=== PATIENT | male | born 1960 | race Caucasian/White ===

== ENCOUNTER 2020-10-06 08:29 | Outpatient (RCR) | payer OTHER, SELFPAY | END 2020-10-14 23:59 | disposition home or self-care (01) | LOC: SPT 08:29 | PROVIDERS: Family Provider Internal Medicine; Referring Provider Internal Medicine; Visit Provider Internal Medicine | DX: M54.5 Low back pain (principal) | CPT/HCPCS: 97110; 97161 ==

== ENCOUNTER 2020-10-15 06:00 | Outpatient (RCR) | payer OTHER, SELFPAY | END 2020-11-14 23:59 | disposition home or self-care (01) | LOC: SPT 06:00 | PROVIDERS: Family Provider Internal Medicine; Referring Provider Internal Medicine; Visit Provider Internal Medicine | DX: M54.5 Low back pain (principal) | CPT/HCPCS: 97110; G0283 ==

== ENCOUNTER 2020-12-11 08:30 | Outpatient (CLI) | payer OTHER, SELFPAY ==
--- NOTE | 2020-12-11 08:37 | MR_ITS ---
WS: [id number] MRI LUMBAR SPINE NONCONTRAST HISTORY: M54.5 - Low back pain COMPARISON: 10/24/2012 TECHNIQUE: Sagittal and axial multisequence imaging is submitted. 7 cervical and 12 thoracic vertebral bodies. Cervical and thoracic curvature. There are 6 lumbar type vertebral bodies. The S1 is lumbarized. This numbering pattern will be important if surgery is ever contemplated in this patient. Posterior lumbar alignment is normal. Very mild disc desiccation throughout the lumbar spine with endplate osteophytes. No fractures or mar row edema. Conus terminates normally at L1-2 disc level. L1-L2: Normal. L2-L3: Mild annular disc bulging and mild facet arthritis. No stenosis. L3-L4: Very mild annular disc bulging with mild ligamentum flavum disease and facet arthritis. RIGHT foraminal disc protrusion with annular fissure contacts the RIGHT L3 nerve root. Very slight deformit y of the ventral thecal sac. L4-L5: Very mild annular disc bulging with a central protrusion. Mild ligamentum flavum disease and f acet arthritis. There is disc contacting the traversing L5 nerve roots bilaterally with only mild for aminal narrowing and mild central stenosis. L5-S1: Diffuse asymmetric disc bulging. Disc extends asymmetrically to the RIGHT. Broad-based disc bu lging causing significant encroachment upon the thecal sac and extends into the lateral recesses and foramina bilaterally. More significant contact on the RIGHT S1 nerve root. Moderate bilateral subarti cular recess stenosis. Progression of degenerative changes since the prior study. S1-S2 disc is rudimentary with no stenosis. Mild dilatation of the aorta. MR/MR lumbar spine wo con* [id number] IMPRESSION: 1. 5 lumbar type vertebral bodies with the S1 vertebral body being lumbarized. 2. Mild central stenosis with moderate bilateral subarticular recess and later al recess stenosis at L5-S1. Contact upon the S1 nerve roots bilaterally. 3. Disc bulging and central protrusion contacts the traversing L5 nerve root a t L4-5. Mild foraminal and central stenosis at L4-5. 4. RIGHT foraminal disc protrusion with annular fissure at L3-4 with contact o n the L3 nerve root. 5. Very mild progression of facet disease throughout the lumbar spine. Most si gnificant facet disease at the L5-S1 and S1-S2. No high-grade central or forami nal stenosis.
== END 2020-12-11 08:31 | disposition home or self-care (01) ==
PROVIDERS: PCP Internal Medicine; Visit Provider Internal Medicine
DX: M54.16 Radiculopathy, lumbar region (principal); M48.07 Spinal stenosis, lumbosacral region; M51.26 Other intervertebral disc displacement, lumbar region
CPT/HCPCS: 72148

== ENCOUNTER → 2021-01-07 09:59 | Outpatient (BNVA) | payer OTHER, SELFPAY | PROVIDERS: PCP Internal Medicine; Referring Provider Internal Medicine; Visit Provider Orthopaedic Surgery | DX: M47.896 Other spondylosis, lumbar region (principal); M54.5 Low back pain | CPT/HCPCS: 72110 ==

== ENCOUNTER → 2021-01-15 11:17 | Outpatient (BNVA) | payer OTHER, SELFPAY | PROVIDERS: PCP Internal Medicine; Visit Provider Internal Medicine | DX: E11.42 Type 2 diabetes mellitus with diabetic polyneuropathy (principal) | CPT/HCPCS: 83036 ==

== ENCOUNTER 2022-03-22 06:06 | Outpatient (CLI) | payer OTHER, SELFPAY ==
--- NOTE | 2022-03-22 06:25 | USCV_ITS ---
Arsen Ma Age: 61 Gender: M : 1960 Exam Date: 03/22/2022 06:32 Ordering Phys: Arthur Jacob MD Technologist: [place] [facility] [place]: CAD BP: 123 / 72 HR: 71 Rhythm: Sinus Technical Quality: Adequate MEASUREMENTS (Male / Female) Normal Values 2D ECHO LV Diastolic Diameter PLAX 3.7 cm 4.2 - 5.9 / 3.9 - 5.3 cm LV Systolic Diameter PLAX 3.1 cm IVS Diastolic Thickness 1.2 cm 0.6 - 1.0 / 0.6 - 0.9 cm IVS Systolic Thickness 1.4 cm LVPW Diastolic Thickness 1.1 cm 0.6 - 1.0 / 0.6 - 0.9 cm LVPW Systolic Thickness 1.3 cm LVOT Diameter 2.0 cm LV Ejection Fraction 2D Teich 23.9 % LV Ejection Fraction MOD 2C 73.6 % LV Ejection Fraction 2C AL 72.1 % LA Diameter 3.9 cm IVC Diameter 2.1 cm M-MODE Aortic Annulus Diameter 3.8 cm LA Ao Ratio MM 1.0 MV E Point Septal Separation 1.7 cm DOPPLER AV Peak Velocity 120.0 cm/s LVOT Peak Velocity 74.0 cm/s AV Area Cont Eq vti 2.2 cm squared AV Area Cont Eq pk 1.9 cm squared MV Area PHT 5.0 cm squared Mitral E to A Ratio 0.6 MV E' Velocity 38.5 cm/s Mitral E to MV E' Ratio 6.6 Mitral E to LV E' Lateral Ratio 6.5 Mitral E to LV E' Septal Ratio 6.8 TR Peak Velocity 242.3 cm/s TR Peak Gradient 23.5 mmHg TV Peak E Velocity 69.0 cm/s Right Atrial Pressure 3.0 mmHg Pulmonary Artery Systolic Pressu 26.5 mmHg RV Acceleration Time 0.1 s FINDINGS Left Ventricle Normal left ventricular size, systolic function and wall thickness, with no regional wall motion abnormalities. Grade I/IV diastolic dysfunction (abnormal relaxation filling pattern), normal to mildly elevated filling pressures. Left ventricular ejection fraction is estimated at 60 %. Right Ventricle Normal right ventricular size and systolic function. Normal right ventricular systolic pressure. Right Atrium The right atrium is normal in size. Left Atrium The left atrium is normal in size. Mitral Valve Structurally normal mitral valve without significant stenosis or prolapse. There is no mitral regurgitation. Aortic Valve Structurally normal aortic valve without significant sclerosis or stenosis. There is no aortic regurgitation. Tricuspid Valve Structurally normal tricuspid valve. Trace tricuspid valve regurgitation. Pulmonic Valve Pulmonic valve not well visualized. Pericardium Normal pericardium without effusion. Aorta Normal ascending aorta dimension. IVC The inferior vena cava appears normal. CONCLUSIONS Normal left ventricular size, systolic function and wall thickness, with no regional wall motion abnormalities. Grade I/IV diastolic dysfunction (abnormal relaxation filling pattern), normal to mildly elevated filling pressures. Left ventricular ejection fraction is estimated at 60 %. There is no change from the previous echo done 06/08/2015. Dr. Arsen Naylor MD (Electronically Signed) Final Date: 22 March 2022 15:29 S
== END 2022-03-22 06:07 | disposition home or self-care (01) ==
LOC: RAD 06:07
PROVIDERS: PCP Internal Medicine; Visit Provider Family Medicine
DX: I25.10 Atherosclerotic heart disease of native coronary artery without angina pectoris (principal)
CPT/HCPCS: 93306

== ENCOUNTER 2022-07-04 11:25 | Outpatient (CLI) | payer OTHER, SELFPAY ==
[2022-07-04 11:51] VITALS: BMI 31.8
--- NOTE | 2022-07-04 11:55 | ECG_ITS ---
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 Interpretive Statements NAME OF STUDY: TREADMILL STRESS TEST INDICATION: [Chest Pain, ] EXERCISE DATA: The patient was exercised by Guy protocol. Baseline heart rate was 93 beats per minute. Baseline blood pressure was 146/85 millimeters of mercury. Target heart rate was 133 beats per minute. Maximum heart rate achieved was 140, which was 105% of the target heart rate. Maximum blood pressure was 200/75 millimeters of mercury. Total exercise time was 6 minutes. Maximum METs achieved was 7. The reason for ending the test was maximal effort achieved chest pain. The patient complained of chest pain during the stress test, which then resolved after administration of sublingual nitroglycerin. ELECTROCARDIOGRAM: BASELINE: Showed sinus rhythm, normal axis, interventricular conduction delay and minimal ST depressions in inferior leads. Occasional PVCs seen. EXERCISE: At the peak exercise level, significant [address] depressions were noted in inferior leads. Minimal ST elevation seen in lead aVR. RECOVERY: During the recovery period, heart rate dropped appropriately. Inferior lead ST elevations in the inferolateral persisted. Frequent PVCs were noted. CONCLUSION: 1. Exercise capacity fair. 2. Heart rate response was appropriate 3. Blood pressure response was appropriate 4. Symptoms of chest pain suggestive of ischemia. 5. Exercise stress test is suggestive of ischemia with significant ST depressions noted in inferior leads and minimal ST elevation in aVR. Electronically Signed On 07-06-2022 13:38:20 CDT by Siddhartha Condon M.D. [id number]
[2022-07-04 12:26] VITALS: BP 147/90; PULSE 99
== END 2022-07-04 11:26 | disposition home or self-care (01) ==
PROVIDERS: PCP Family Medicine; Visit Provider Family Medicine
DX: I25.10 Atherosclerotic heart disease of native coronary artery without angina pectoris (principal)
CPT/HCPCS: 93017

== ENCOUNTER 2022-07-11 15:12 | Observation (INO) | payer OTHER, SELFPAY ==
[2022-07-11 15:00] VITALS: BMI 32.0
--- NOTE | 2022-07-11 15:26 | ECG_ITS ---
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 Measurements Intervals [place] Rate: 79 P: 55 UT: 138 QRS: 75 QRSD: 129 T: 37 QT: 397 QTc: 457 Interpretive Statements SINUS RHYTHM WITH OCCASIONAL VENTRICULAR PREMATURE COMPLEXES INDETERMINATE AXIS POSSIBLE RIGHT VENTRICULAR CONDUCTION DELAY [RSR (QR) IN V1/V2] Compared to ECG 06/08/2015 05:00:26 Ventricular premature complex(es) now present Indeterminate axis now present Intraventricular conduction delay no longer present Electronically Signed On 07-11-2022 19:28:33 CDT by Siddhartha Condon M.D. [id number] f
[2022-07-11 15:31] VITALS: BP 157/90; PULSE 88; RESP 15; O2SAT 95
[2022-07-11 16:03] VITALS: TEMP 36.4
[2022-07-11 16:18] LABS: Basophils % 0.4 %; Eosinophils # 0.4 10^3/uL (0.0-0.8); Eosinophils % 3.9 %; Hematocrit 41.8 % (42.0-52.0); Hemoglobin 14.3 g/dL (11.7-16.6); Lymphocytes % 32.6 %; Mean Corpuscular HGB Conc 34.2 g/dL (30.0-36.0); Mean Corpuscular Hemoglobin 28.8 pg (28.0-34.0); Mean Corpuscular Volume 84.3 fl (80-94); Mean Platelet Volume 9.6 fL (7.4-10.4); Monocytes % 10.5 %; Neutrophils # 4.79 10^3/uL (1.8-7.7); Neutrophils % 52.2 %; Nucleated Red Blood Cells % 0 %; Platelet Count 227 10^3/cmm (130-400); Red Blood Count 4.96 10^6/uL (4.1-5.3); Red Cell Distribution Width 13.6 % (12.1-15.1); White Blood Count 9.2 10^3/uL (4.0-10.0)
[2022-07-11 16:38] LABS: Alanine Aminotransferase 25 U/L (0-41); Alkaline Phosphatase 60 U/L (40-130); Anion Gap 14.9 (5-19); Aspartate Amino Transferase 16 U/L (0-40); Blood Urea Nitrogen 18 mg/dL (8-23); Calcium 8.8 mg/dL (8.5-10.5); Carbon Dioxide 25 mmol/L (22-29); Chloride 102 mmol/L (98-107); Globulin 2.8 g/dL (1.3-4.6); Glomerular Filtration Rate 113.9 mL/min (90-130); Glucose 81 mg/dL (65-115); Magnesium 2.1 mg/dL (1.7-2.3); Osmolality Calculated 287 mOsm/kg (285-295); Phosphorus 2.7 mg/dL (2.5-4.5); Potassium 3.9 mmol/L (3.5-5.1); Sodium 138 mmol/L (136-145); Total Bilirubin 0.7 mg/dL (0.15-1.2); Total Protein 6.8 g/dL (6.6-8.7)
[2022-07-11 16:46] LABS: Glucose Point of Care 110 mg/dL (70-110)
--- NOTE | 2022-07-11 19:24 | PM.HP ---
Providers/Chief Complaint Admitting Physician: Siddhartha Condon M.D Primary Care Provider: Arthur Jacob MD Chief Complaint: UNSTABLE ANGINA History of Present Illness Please refer to office note from today for H and P Medications/Allergies Home Medications Medication Instructions Recorded Confirmed Last Taken Type nitroglycerin 0.4 mg sublingual 0.4 mg sublingual Q5M PRN Chest 05/23/19 07/11/22 07/11/22 11:30 History tablet (Nitrostat) Pain omega-3 fatty acids 1,000 mg 1,000 mg PO DAILY 05/23/19 07/11/22 07/10/22 18:00 History capsule (Fish Oil Concentrate) One touch ultra blue test strips #1 ea 01/15/20 01/15/21 Unknown Rx hydrocodone 10 mg-acetaminophen 1 tab PO BID PRN pain 2 months #60 12/02/20 07/11/22 Unknown Rx 325 mg tablet tabs sitagliptin phosphate 100 mg tablet 100 mg PO DAILY #30 tabs 01/25/21 07/11/22 07/10/22 06:00 Rx glimepiride 4 mg tablet 4 mg PO BID #180 tabs 03/04/21 07/11/22 07/10/22 18:00 Rx tamsulosin 0.4 mg capsule (Flomax) 0.4 mg PO DAILY #30 caps 07/20/21 07/11/22 07/10/22 18:00 Rx furosemide 20 mg tablet 20 mg PO DAILY #90 tabs 08/30/21 07/11/22 07/10/22 06:00 Rx omeprazole 20 mg capsule,delayed 20 mg PO DAILY #90 caps 09/30/21 07/11/22 07/10/22 06:00 Rx release potassium chloride 10 mEq See Rx Instructions .Route 01/17/22 07/11/22 07/10/22 06:00 Rx tablet,extended release(part/cryst) .COMPLEX #30 tabs aspirin 81 mg PO BEDTIME 07/11/22 07/11/22 07/10/22 18:00 History dapagliflozin 10 mg tablet 10 mg PO DAILY 07/11/22 07/11/22 07/10/22 06:00 History (Farxiga) doxycycline hyclate 100 mg tablet 100 mg PO BID PRN tick fever 07/11/22 07/11/22 Unknown History exenatide microspheres 2 mg/0.85 2 mg SUBCUT Q7D 07/11/22 07/11/22 07/05/22 18:00 History mL subcutaneous auto-injector (Millie Salazar) lisinopril 20 mg tablet 10 mg PO DAILY 07/11/22 07/11/22 07/10/22 18:00 History spironolactone 25 25 tab PO DAILY 07/11/22 07/11/22 07/10/22 06:00 History mg-hydrochlorothiazide 25 mg tablet tadalafil 20 mg tablet 20 mg PO .COMPLEX 07/11/22 07/11/22 Unknown History Allergies Allergy/AdvReac Type Severity Reaction Status Date / Time No Known Allergies Allergy Verified 07/11/22 08:21 PFSH Acute PFSH: Medical History Erectile dysfunction Essential (primary) hypertension Type 2 diabetes mellitus with diabetic polyneuropathy Surgical History History of cardiac catheterization History of carpal tunnel surgery History of colonoscopy Family History Other CAD (coronary artery disease) Social History Smoking and tobacco status: former smoker (15 years ) Alcohol intake: former Vitals/I&O/Wt Last Vital Signs Temp 97.5 F L 07/11/22 16:03 Pulse 88 07/11/22 15:31 Resp 15 07/11/22 15:31 BP 157/90 07/11/22 15:31 Pulse Ox 95 07/11/22 15:31 O2 Del Method 07/11/22 15:31 07/11/22 07/11/22 07/11/22 06:59 14:59 22:59 Intake Total 240 / 240 Output Total 0 / 0 Balance 240 / 240 Weight last 48 hrs Weight 236 lb 4.8 oz Data 07/11/22 16:05 07/11/22 16:05 Attestations Medical Necessity Statement*: Care not expected to cross 2 midnights. Coding Level of Care Code Acute Code for Chg Fwd
[2022-07-11 19:49] LABS: Troponin(5th) Baseline 11 ng/L (0-15)
[2022-07-11] MEDS: aspirin 325 mg Tablet PO (20:19)
[2022-07-11] MEDS: enoxaparin 120 mg/0.8 mL Syringe 110 MG SUBCUT (20:19)
[2022-07-11 21:37] LABS: Glucose Point of Care 210 mg/dL (70-110)
[2022-07-11 22:00] VITALS: PULSE 85
[2022-07-11 22:10] LABS: Troponin 5 2HR 11.49 ng/L (0-15)
[2022-07-11 22:13] LABS: Troponin 5 2HR Delta 0.49 ABS# (0-10)
[2022-07-12] VITALS (20 sets, daily range): BP systolic 123–161; BP diastolic 70–93; PULSE 78–90; RESP 12–24; TEMP 36.4–37.4; O2SAT 91–96
--- NOTE | 2022-07-12 01:42 | ECG_ITS ---
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 Measurements Intervals [place] Rate: 81 P: 76 WI: 138 QRS: 133 QRSD: 130 T: 41 QT: 375 QTc: 436 Interpretive Statements SINUS RHYTHM WITH OCCASIONAL VENTRICULAR PREMATURE COMPLEXES POSSIBLE RIGHT VENTRICULAR HYPERTROPHY [SOME/ALL OF: PROMINENT R IN V1, LATE TRANSITION, RAD, PHILIP, SSS] NONSPECIFIC T-WAVE ABNORMALITY Compared to ECG 07/11/2022 15:26:31 T-wave abnormality now present Indeterminate axis no longer present Electronically Signed On 07-13-2022 0:47:20 CDT by Anamika Espinosa M.D. [id number]
[2022-07-12 02:02] LABS: Troponin 5 6HR 12.06 ng/L (0-15)
[2022-07-12 02:24] LABS: Troponin 5 6HR Delta 1.06 ng/L (0-12)
[2022-07-12] MEDS: diphenhydrAMINE 50 mg Capsule PO (06:15)
[2022-07-12] MEDS: sodium chloride 0.9% 1,000 ML 50 ML IV (06:16)
[2022-07-12 06:47] LABS: Glucose Point of Care 145 mg/dL (70-110)
--- NOTE | 2022-07-12 07:00 | XACV_ITS ---
Exam Room: [facility] Ht: 183 cm Wt: 107 kg BSA: 2.36 m2 Gender: Male : 1960 Any Known Allergies: Sulfa Exam Priority: Routine Indication(s): - Abnormal stress treadmill study Procedure(s): Procedure Description: Diagnostic procedure Procedure Description: Coronary Angiography Diagnostic Cath Status: Urgent Diagnostic Findings * INDICATION: 61-year-old man with past medical history of CAD, diabetes, hypertension who has unstable anginal symptoms was directly admitted from clinic. He also has a recent abnormal stress test. Plan for coronary angiogram with possible percutaneous coronary intervention. * Left Main has is a very short vessel. No significant stenosis noted. * Circumflex has mild luminal irregularities. It gives rise to a large sized OM 1 that is free of significant disease. OM 2 is a smaller sized vessel and has a 80% stenosis. * Proximal Left Anterior Descending: severe 90% stenosis, NGOZI: 3 flow. After the stenosis, it gives rise to diagonal artery that is free of significant disease. * Mid Right Coronary Artery: Chronic total occlusion, NGOZI: 0 flow. Left to right collaterals are noted. * Second Obtuse Marginal Branch Segment: significant 80% stenosis, NGOZI: 3 flow. * Coronary angiography shows right dominance. Conclusions 1. Severe multivessel coronary artery disease including severe proximal LAD, severe OM 2 stenosis and OUTSIDE LABORER of mid RCA with left to right collaterals. Recommendations * We will have heart team discussion and if he is agreeable, will transfer for CABG. * Continue aspirin. * Order echocardiogram. Interventional RX Recommendation: CABG Diagnostic RX Recommendation: CABG Anticoagulation: Heparin Pressures Phase:Rest AO : 90 / 66 ( 78 ) @ 8:47:00 AM Clinical Evaluation EBL: 5mL-10mL Procedural Details Procedure Consent Obtained. Admit Source: In Patient. Pre-Procedure Time Out. Identified patient by full name and date of as verbalized by the patient/guarantor. Does the consent match the physician's order: Yes. Accurate & Complete Informed Consent: Yes. Inpatient/Outpatient History & Physical on Chart: Yes. If H&P is completed, is and addenduem needed: N/A; If yes, is the addendum complete: N/A. Visualize and Verify Site with Patient/Guarantor: N/A. Relevant Radiology Images available: N/A. Pre-op teaching completed and patient verbalized understanding. The risks, benefits, and alternatives of sedation and/or procedure were discussed by physician. The patient agrees to continue. Procedure started. [facility] Clinical Fraility Score: 4: Vulnerable. Central Processing Tech Indications: Worsening Angina. Chest Pain Symptom Assessment: Typical Angina Symptoms. Correct patient, site and procedure confirmed by cath team. Current diagnosis: Unstable angina. PERRLA. 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 Lungs clear x 5 lobes. IV Site on Arrival: 18 gauge in the right forearm. IV Fluids: 0.9% NaCl at KVO. 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 Pre Procedural Pulses: bilateral dorsalis pedis was 2+. Pre Procedural Pulses: bilateral radial was 2+. Oxygen started at 2liters/min via nasal canula. right groin was prepped with chloroprep then draped in the usual sterile fashion. right radial was prepped with chloroprep then draped in the usual sterile fashion. Baseline sample Acquired. HR: 73 BPM. Physician notified. Physician arrived. Physician scrubbed in. Immediate Pre-Procedure Time Out. Correct Patient: Yes; Correct Procedure: Yes; Correct Site: Yes; Correct Patient Position: Yes; Correct Supplies: Yes; Dried Flammable Prep: Yes; Blood Products Available: N/A;. Lidocaine 1% infiltrated to the right radial. Arterial access obtained. A 5 urdu TIG catheter in over wire. Multiple views taken of left coronary artery. Catheter redirected to the RCA. Multiple views taken of right coronary artery. Catheter out. A 5 urdu JL3.5 catheter in over wire. Multiple views taken of left coronary artery. Catheter out. A TR Band was successful obtaining hemostatsis at the Right Radial artery insertion site. Post Procedure: Pulses reassessed and unchanged. PERRLA. 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 No VTE prophylaxis required. Medication's Wasted: Heparin = 1000 u. Medication's Wasted: Nitro = 49.8 mg. Medication's Wasted: Other = Versed 1 mg. Medication's Wasted: Other = Fentanyl 25 mcg. Total IV fluids: 32 mL. Post-op diagnosis: Severe Multi Vessel CAD. Complications: none. Estimated blood loss: 5mL-10mL. Responsiveness - Normal response to verbal stimuli; alert and oriented, PERRLA. Airway - Unaffected, no intervention required; spontaneous ventilation. Circulation: W/N/L, pulses unchanged. Nausea/Vomiting: No. Procedure completed. Patient transferred by wheelchair to CPRU. Vital chart was stopped. Access Site Site: Right Radial artery Sheath Size: 6 Fr Hemostasis Method: TR Band Hemostasis Success: Successful Procedure Medications Start: 7:39 AM Stop: 7:39 AM Medication: Versed Amount: 1 mg Route: I.V. Start: 7:39 AM Stop: 7:39 AM Medication: Fentanyl Amount: 50 mcg Route: I.V. Start: 7:46 AM Stop: 7:46 AM Medication: Nitrogylcerin Amount: 200 mcg Route: I.A. Start: 7:46 AM Stop: 7:46 AM Medication: Heparin Amount: 5000 units Route: I.V. I, the attending physician, have reviewed and verified all procedure medications. Yes, all medications given per verbal order History/Risk Factors Hypertension: Yes Dyslipidemia: No Peripheral Arterial Disease (PAD): No Myocardial Infarction (ME): No Obesity: Yes Renal Disease: No Tobacco Use: Former Prior Interventions PCI: No CABG: No Valve Surgery: No Report Signatures Finalized by Siddhartha Condon MD on 07/12/2022 09:32 AM
--- NOTE | 2022-07-12 07:25 | PC.NURSE ---
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
--- NOTE | 2022-07-12 07:37 | W.PM.OPSUD ---
Surgery/Procedure H&P Update DATE OF PROCEDURE: July 12, 2022 DATE H&P PERFORMED: 07/11/22 H&P UPDATE INFORMATION: I have reviewed H&P completed within last 30 days, I have examined patient prior to procedure and No changes to prior documentation PREOP DIAGNOSIS: Unstable angina PRIMARY INDICATION FOR PROCEDURE: Unstable angina PLANNED PROCEDURE: Operation Date: 07/12/22 07:00 Proposed Procedures p Cardiac Catheterization with possible PCI(Not Applicable) - Siddhartha Condon M.D Possible percutaneous coronary intervention PATIENT REASSESSED PRIOR TO SEDATION, WITH NO CHANGE NOTED: Yes PHYSICAL EXAM: alert, oriented x 3, clear to auscultation bilaterally and regular rate & rhythm AIRWAY EVAL/ANESTHESIA PLAN: normal airway, ASA III, Local Anesthesia, Risks, benefits & alternatives of sedation and/or procedure discussed and Patient agrees to continue as planned
--- NOTE | 2022-07-12 08:00 | SUR.PHASEI ---
iv fluids IV fluids set at 100 ml/hr post cath at this time. 0.9% NORMAL SALINE INFUSING.
--- NOTE | 2022-07-12 08:00 | SUR.PHASEI ---
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 Status post cardiac catheterization via the right radial approach. 13 ml air in the band and is free of hematoma or s/s of active bleeding. Family in room. Verbal post cath instructions went over with patient/family which they understood well. Call light in reach. Informed to call for needs.
--- NOTE | 2022-07-12 08:36 | USCV_ITS ---
Arsen Ma Age: 61 Gender: M : 1960 Exam Date: 07/12/2022 10:52 Ordering Phys: Siddhartha Condon M.D ([email or web address]) Technologist: CT Exam Location: [facility] [place] Indication: chest pain BP: 140 / 80 HR: 81 Rhythm: Sinus Technical Quality: Adequate MEASUREMENTS (Male / Female) Normal Values 2D ECHO LV Diastolic Diameter PLAX 5.8 cm 4.2 - 5.9 / 3.9 - 5.3 cm LV Systolic Diameter PLAX 4.2 cm IVS Diastolic Thickness 1.3 cm 0.6 - 1.0 / 0.6 - 0.9 cm IVS Systolic Thickness 1.7 cm LVPW Diastolic Thickness 1.3 cm 0.6 - 1.0 / 0.6 - 0.9 cm LVPW Systolic Thickness 1.5 cm LVOT Diameter 2.1 cm LV Ejection Fraction 2D Teich 52.7 % LV Ejection Fraction MOD 2C 41.9 % LV Ejection Fraction 2C AL 39.0 % LA Diameter 3.2 cm IVC Diameter 1.6 cm M-MODE Aortic Annulus Diameter 3.7 cm LA Ao Ratio MM 1.0 MV E Point Septal Separation 1.5 cm DOPPLER AV Peak Velocity 119.0 cm/s MV Area PHT 5.0 cm squared Mitral E to A Ratio 0.7 MV E' Velocity 31.5 cm/s Mitral E to MV E' Ratio 6.5 Mitral E to LV E' Lateral Ratio 4.9 Mitral E to LV E' Septal Ratio 9.7 TR Peak Velocity 286.3 cm/s TR Peak Gradient 32.8 mmHg TV Peak E Velocity 65.0 cm/s Right Atrial Pressure 3.0 mmHg Pulmonary Artery Systolic Pressu 35.8 mmHg PV Peak Velocity 89.0 cm/s RV Acceleration Time 0.1 s FINDINGS Left Ventricle Left ventricle is mildly dilated. LV systolic function is borderline low with EF of 45-50%. Mild global hypokinesis. Grade 1 diastolic dysfunction. Right Ventricle Normal in size and function Right Atrium Normal in size Left Atrium Normal in size Mitral Valve Structurally normal mitral valve. Aortic Valve Grossly normal. No significant stenosis or regurgitation. Tricuspid Valve Mild tricuspid regurgitation.RVSP is 35-40mmHg. This is consistent with mild pulmonary hypertension. Pulmonic Valve Not well visualized Pericardium Normal Aorta Normal in size IVC Appears to be normal CONCLUSIONS Left ventricle is mildly dilated LV systolic function is borderline low with EF of 45-50% Grade 1 diastolic dysfunction Mild tricuspid regurgitation. Mild pulmonary hypertension Compared to prior echocardiogram from 03/22/2022, LV systolic function has decreased and is mildly reduced. Siddhartha Condon MD (Electronically Signed) Final Date: 12 July 2022 14:50 S
--- NOTE | 2022-07-12 08:48 | PC.NURSE ---
patient back in room hooked to monitor VS taken. [id number].
--- NOTE | 2022-07-12 10:04 | PC.CHAP ---
Pastoral Care Encounter/Spiritual Assessment Type of Contact [] Declined sustainable design coordinator visit [] Patient/Family/Request visit [] Outpatient visit [] Follow-up visit [] Physician referral [] Code/Alert [x] Routine visit [] Staff referral [] Actively dying [] Patient sleeping [x] Family support [] [] Out of room [] Palliative care [] [] Receiving care in room [] Pre-surgical visit [] Trauma [] Long length of stay [] ICU visit [] Other: Relational/Emotional Strength [x] Patient feels connected with others/family/visitors/staff [] Distress [] Loneliness/isolation [] Abandonment Spirituality of Patient [x] Person of Eva [] Attends Alevism of their Eva [] Believes in Prayer [] Reads Bible or Jew materials [] There are Spiritual issues to be addressed Stained Glass Joiner Interventions [x] Prayer [] Active listening [] Non-anxious presence [] Spiritual/emotional support [] Crisis/trauma care [] Spiritual counseling [] Bereavement support [] Provided bereavement packet [] Provided Bible/devotional materials [] Provided toy/stuffed animal, coloring book to patient or family member [] Provided Communion [] Anointing/[place] [] Salvation [x] Completed spiritual assessment [] Other: Impact on Illness or Injury [] Angry [] Fearful [] Anxious [] Often cries [] Exhaustion [] Unable to work [] Unable to attend adventism [] Unable to walk/stand [] Unable to read [] Unable to drive [] Unable to eat/drink [] Unable to sleep [] Unable to be with family [] Patient intubated [] Other: Summary Time spent with patient 5 min
[2022-07-12 11:44] LABS: Glucose Point of Care 135 mg/dL (70-110)
--- NOTE | 2022-07-12 14:50 | PM.PN ---
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 He is chest pain-free at this time. Vitals/I&O/Wt Last Vital Signs Temp 97.8 F 07/12/22 00:00 Pulse 90 07/12/22 14:26 Resp 17 07/12/22 14:26 BP 161/93 07/12/22 14:26 Pulse Ox 94 07/12/22 14:26 O2 Del Method 07/12/22 14:26 07/11/22 07/12/22 07/12/22 22:59 06:59 14:59 Intake Total 360 / 360 1680 / 1680 Output Total 0 / 0 Balance 360 / 360 1680 / 1680 Weight last 48 hrs Weight 236 lb 4.8 oz Physical Exam Narrative: GENERAL: Patient is alert, awake and oriented x3. [] NECK: No jugular vein distension. [] HEENT: No cyanosis. No icterus. No pallor. [] HEART: Regular S1 and S2. No murmur, rub or gallop. [] LUNGS: Clear to auscultate bilaterally. [] CENTRAL NERVOUS SYSTEM: Grossly nonfocal. [] EXTREMITIES: Lower extremities with 1+ edema bilaterally. Pulses palpable in the lower extremities, both dorsalis pedis and posterior tibial. [] Data 07/11/22 16:05 07/11/22 16:05 A&P Assessment and plan (1) Unstable angina: (2) Coronary artery disease: (3) Type 2 diabetes mellitus with diabetic polyneuropathy: (4) Essential (primary) hypertension: Plan Patient's coronary angiogram showed multivessel coronary artery disease. Given his age, his diabetes, coronary artery bypass surgery will be ideal option for complete revascularization. We will transfer him to [facility] for that. Continue aspirin. Patient will be followed up after the surgery. Attestations Medical Necessity Statement*: Care expected to cross 2 midnights. Coding Level of Care Code Acute Code for [facility] Fw Diagnoses Unstable angina I20.0 Coronary artery disease I25.10 Type 2 diabetes mellitus with diabetic polyneuropathy E11.42 Essential (primary) hypertension I10
[2022-07-12] MEDS: lisinopril 20 mg Tablet PO (14:51)
--- NOTE | 2022-07-12 16:00 | PC.NURSE ---
report called at 1600 to Philippe Douglas RN
--- NOTE | 2022-07-12 16:22 | P.TS_ITS ---
Transfer Summary Providers Date of Admission: 07/11/22 15:12 Date of Discharge/Transfer: 07/12/22 Attending Provider at Admission: Siddhartha Condon M.D Attending Provider at Transfer: Siddhartha Condon M.D Primary Care Provider: Arthur Jacob MD Transfer Plans: Anticipated date of transfer: 07/12/22 . Receiving Facility: [facility] . Receiving Provider: Dr Reyes . Diagnoses at Discharge Discharge Diagnosis (1) Unstable angina: Status: Acute (2) Coronary artery disease: Status: Acute (3) Type 2 diabetes mellitus with diabetic polyneuropathy: Status: Acute (4) Essential (primary) hypertension: Status: Acute Reason for Visit Reason for Visit UNSTABLE ANGINA Brief History: 61-year-old man with past medical history of diabetes, hypertension and CAD presented yesterday to the office with worsening chest pain symptoms. He is taking multiple nitros every day. Minimal activity causes him to have significant chest pain. He also had a recent stress test that was abnormal. He was directly admitted from clinic for coronary angiogram. 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 With his diabetes, CABG will be preferable option for complete revascularization. He underwent echocardiogram that shows mildly reduced LV systolic function with EF of 45 to 50%. This is a decrease from previous echocardiogram. He is currently on aspirin. Physical Exam Narrative: GENERAL: Patient is alert, awake and oriented x3. [] NECK: No jugular vein distension. [] HEENT: No cyanosis. No icterus. No pallor. [] HEART: Regular S1 and S2. No murmur, rub or gallop. [] LUNGS: Clear to auscultate bilaterally. [] CENTRAL NERVOUS SYSTEM: Grossly nonfocal. [] EXTREMITIES: Lower extremities with 1+ edema bilaterally. Pulses palpable in the lower extremities, both dorsalis pedis and posterior tibial. [] TS Data Studies Completed and Pending Labs from last 24 hours 07/12/22 07/12/22 07/12/22 11:36 06:40 01:37 Sodium Potassium Chloride Carbon Dioxide Anion Gap BUN Creatinine GFR Calculation Glucose POC Glucose 135 H 145 H Calculated Osmolality Calcium Phosphorus Magnesium Total Bilirubin AST ALT Alkaline Phosphatase Troponin T Baseline Troponin T 120 Minute Delta Troponin T Troponin T Hi Sens 6Hr 12.06 Troponin T Hi Sens 6Hr Delta 1.06 Total Protein Albumin Globulin 07/11/22 07/11/22 07/11/22 21:40 21:31 19:25 Sodium Potassium Chloride Carbon Dioxide Anion Gap BUN Creatinine GFR Calculation Glucose POC Glucose 210 H Calculated Osmolality Calcium Phosphorus Magnesium Total Bilirubin AST ALT Alkaline Phosphatase Troponin T Baseline 11 Troponin T 120 Minute 11.49 Delta Troponin T 0.49 Troponin T Hi Sens 6Hr Troponin T Hi Sens 6Hr Delta Total Protein Albumin Globulin 07/11/22 07/11/22 16:40 16:05 Sodium 138 Potassium 3.9 Chloride 102 Carbon Dioxide 25 Anion Gap 14.9 BUN 18 Creatinine 0.7 GFR Calculation 113.9 Glucose 81 POC Glucose 110 Calculated Osmolality 287 Calcium 8.8 Phosphorus 2.7 Magnesium 2.1 Total Bilirubin 0.7 AST 16 ALT 25 Alkaline Phosphatase 60 Troponin T Baseline Troponin T 120 Minute Delta Troponin T Troponin T Hi Sens 6Hr Troponin T Hi Sens 6Hr Delta Total Protein 6.8 Albumin 4.0 Globulin 2.8 Completed Studies During Hospitalization Category Date Time Status STAFF PHYSICIAN request for service Routine Exams 07/12/22 07:00 Completed CV. echo complete* [id number] Routine Ultrasound 07/12/22 08:36 Taken Laboratory Last Values WBC 9.2 10^3/uL (4.0-10.0) 07/11/22 16:05 RBC 4.96 10^6/uL (4.1-5.3) 07/11/22 16:05 Hgb 14.3 g/dL (11.7-16.6) 07/11/22 16:05 Hct 41.8 % (42.0-52.0) L 07/11/22 16:05 MCV 84.3 fl (80-94) 07/11/22 16:05 MCH 28.8 pg (28.0-34.0) 07/11/22 16:05 MCHC 34.2 g/dL (30.0-36.0) 07/11/22 16:05 RDW 13.6 % (12.1-15.1) 07/11/22 16:05 Plt Count 227 10^3/cmm (130-400) 07/11/22 16:05 MPV 9.6 fL (7.4-10.4) 07/11/22 16:05 Neut % (Auto) 52.2 % 07/11/22 16:05 Lymph % (Auto) 32.6 % 07/11/22 16:05 Pierce % (Auto) 10.5 % 07/11/22 16:05 Eos % (Auto) 3.9 % 07/11/22 16:05 Baso % (Auto) 0.4 % 07/11/22 16:05 Neut # (Auto) 4.79 10^3/uL (1.8-7.7) 07/11/22 16:05 Lymph # (Auto) 3.0 10^3/uL (0.8-4.8) 07/11/22 16:05 Pierce # (Auto) 1.0 10^3/uL (0.2-0.9) H 07/11/22 16:05 Eos # (Auto) 0.4 10^3/uL (0.0-0.8) 07/11/22 16:05 Baso # (Auto) 0.0 10^3/uL (0.0-0.1) 07/11/22 16:05 Nucleated RBC % (auto) 0 % 07/11/22 16:05 Nucleated RBCs # 0.0 /100WBC 07/11/22 16:05 Sodium 138 mmol/L (136-145) 07/11/22 16:05 Potassium 3.9 mmol/L (3.5-5.1) 07/11/22 16:05 Chloride 102 mmol/L (98-107) 07/11/22 16:05 Carbon Dioxide 25 mmol/L (22-29) 07/11/22 16:05 Anion Gap 14.9 (5-19) 07/11/22 16:05 BUN 18 mg/dL (8-23) 07/11/22 16:05 Creatinine 0.7 mg/dL (0.7-1.2) 07/11/22 16:05 GFR Calculation 113.9 mL/min (90-130) 07/11/22 16:05 Glucose 81 mg/dL (65-115) 07/11/22 16:05 POC Glucose 135 mg/dL (70-110) H 07/12/22 11:36 Calculated Osmolality 287 mOsm/kg (285-295) 07/11/22 16:05 Calcium 8.8 mg/dL (8.5-10.5) 07/11/22 16:05 Phosphorus 2.7 mg/dL (2.5-4.5) 07/11/22 16:05 Magnesium 2.1 mg/dL (1.7-2.3) 07/11/22 16:05 Total Bilirubin 0.7 mg/dL (0.15-1.2) 07/11/22 16:05 AST 16 U/L (0-40) 07/11/22 16:05 ALT 25 U/L (0-41) 07/11/22 16:05 Alkaline Phosphatase 60 U/L (40-130) 07/11/22 16:05 Troponin T Baseline 11 ng/L (0-15) 07/11/22 19:25 Troponin T 120 Minute 11.49 ng/L (0-15) 07/11/22 21:40 Delta Troponin T 0.49 ABS# (0-10) 07/11/22 21:40 Troponin T Hi Sens 6Hr 12.06 ng/L (0-15) 07/12/22 01:37 Troponin T Hi Sens 6Hr Delta 1.06 ng/L (0-12) 07/12/22 01:37 Total Protein 6.8 g/dL (6.6-8.7) 07/11/22 16:05 Albumin 4.0 g/dL (3.5-5.2) 07/11/22 16:05 Globulin 2.8 g/dL (1.3-4.6) 07/11/22 16:05 Recent Clincial Data Last Vital Signs Temp 97.6 F 07/12/22 15:09 Pulse 90 07/12/22 14:26 Resp 17 07/12/22 14:26 BP 161/93 07/12/22 14:26 Pulse Ox 94 07/12/22 14:26 O2 Del Method 07/12/22 14:26 Vital Signs Temp Pulse Resp BP Pulse Ox O2 Del Method 07/12/22 15:09 97.6 F 07/12/22 12:00 Room Air 07/12/22 11:45 Room Air 07/12/22 11:30 Room Air 07/12/22 14:26 90 17 161/93 94 Room Air 07/12/22 11:15 Room Air 07/12/22 11:04 Room Air 07/12/22 10:34 Room Air 07/12/22 10:04 Room Air 07/12/22 09:34 Room Air 07/12/22 09:15 Room Air 07/12/22 09:15 78 24 H 123/89 95 07/12/22 09:00 134/80 07/12/22 08:30 80 18 140/72 96 07/12/22 08:30 Room Air 07/12/22 08:15 84 16 136/70 96 07/12/22 08:15 Room Air 07/12/22 08:00 82 18 148/84 96 07/12/22 08:00 Room Air Intake & Output/Weight 07/10/22 07/11/22 07/12/22 07/13/22 06:59 06:59 06:59 06:59 Intake Total 360 / 360 1680 / 1680 Output Total 0 / 0 Balance 360 / 360 1680 / 1680 Weight 236 lb 4.8 oz Vitals Last Vital Signs Temp 97.6 F 07/12/22 15:09 Pulse 90 07/12/22 14:26 Resp 17 07/12/22 14:26 BP 161/93 07/12/22 14:26 Pulse Ox 94 07/12/22 14:26 O2 Del Method 07/12/22 14:26 TS Medications Medications Dextrose (Dextrose 50% Syringe 50 Ml) 25 ml IVP ONCE PRN; Protocol PRN Reason: hypoglycemia protocol Dextrose (Dextrose 50% Syringe 50 Ml) 50 ml IVP PRN PRN; Protocol PRN Reason: hypoglycemia protocol Enoxaparin Sodium (Enoxaparin 120 Mg/0.8 Ml Syringe) 110 mg SUBCUT Q12H FOR[facility]LY [facility], 1928[facility]1983 Last Admin: 07/12/22 08:36 Dose: Not Given Glucagon (Glucagon 1 Mg/Ml Inj 1 Ml) 1 mg IM ONCE PRN; Protocol PRN Reason: Adult Acute Hypoglycemia Prot. Dextrose (D5w) 500 mls @ 100 mls/hr IV ONCE PRN; Protocol PRN Reason: Adult Acute Hypoglycemia Prot Insulin Human Lispro (Insulin Lispro 100 Unit/1 Ml) 0 unit SUBCUT WM&BEDTIME RANJITH; Protocol Last Admin: 07/12/22 12:51 Dose: Not Given Lisinopril (Lisinopril 20 Mg Tablet) 20 mg PO DAILY FOR[facility]LY [facility], [facility]1983 Last Admin: 07/12/22 14:51 Dose: 20 mg Discontinued Medications Aspirin (Aspirin 325 Mg Tablet) 325 mg PO ONCE ONE Stop: 07/11/22 19:09 Last Admin: 07/11/22 20:19 Dose: 325 mg Diphenhydramine HCl (Diphenhydramine 50 Mg Capsule) 50 mg PO ONCE ONE Stop: 07/11/22 19:09 Last Admin: 07/12/22 03:43 Dose: Not Given Diphenhydramine HCl (Diphenhydramine 50 Mg Capsule) 50 mg PO ONCE ONE Stop: 07/12/22 06:01 Last Admin: 07/12/22 06:15 Dose: 50 mg Fentanyl (Fentanyl 50 Mcg/Ml Inj 2ml) Confirm Administered Dose 100 mcg .ROUTE .STK-MED ONE Stop: 07/12/22 06:58 Heparin Sodium (Porcine) (Heparin 5,000 Unit/Ml Inj 1 Ml) Confirm Administered Dose 10,000 unit .ROUTE .STK-MED ONE Stop: 07/12/22 06:59 Sodium Chloride (Sodium Chloride 0.9%) 1,000 mls @ 50 mls/hr IV .Q20H ONE Stop: 07/12/22 15:07 Last Admin: 07/12/22 06:16 Dose: 50 mls/hr Lidocaine HCl (Xylocaine) Confirm Administered Dose 4 mls @ as directed .ROUTE .STK-MED ONE Stop: 07/12/22 06:59 Midazolam HCl (Midazolam 1 Mg/Ml Inj 2 Ml) Confirm Administered Dose 2 mg .ROUTE .STK-MED ONE Stop: 07/12/22 06:59 Nitroglycerin (Nitroglycerin 5 Mg/Ml Sdv 10 Ml) Confirm Administered Dose 50 mg .ROUTE .STK-MED ONE Stop: 07/12/22 06:58 Allergies No Known Allergies Allergy (Verified 07/11/22 08:21) Home Medications nitroglycerin 0.4 mg sublingual tablet (Nitrostat) 0.4 mg sublingual Q5M PRN Chest Pain 05/23/19 [History Confirmed 07/11/22] omega-3 fatty acids 1,000 mg capsule (Fish Oil Concentrate) 1,000 mg PO DAILY 05/23/19 [History Confirmed 07/11/22] One touch ultra blue test strips #1 ea 01/15/20 [Rx Confirmed 07/12/22] hydrocodone 10 mg-acetaminophen 325 mg tablet 1 tab PO BID PRN pain 2 months #60 tabs 12/02/20 [Rx Confirmed 07/11/22] sitagliptin phosphate 100 mg tablet 100 mg PO DAILY #30 tabs 01/25/21 [Rx Confirmed 07/11/22] glimepiride 4 mg tablet 4 mg PO BID #180 tabs 03/04/21 [Rx Confirmed 07/11/22] tamsulosin 0.4 mg capsule (Flomax) 0.4 mg PO DAILY #30 caps 07/20/21 [Rx Confirm ed 07/11/22] furosemide 20 mg tablet 20 mg PO DAILY #90 tabs 08/30/21 [Rx Confirmed 07/11/22] omeprazole 20 mg capsule,delayed release 20 mg PO DAILY #90 caps 09/30/21 [Rx Confirmed 07/11/22] potassium chloride 10 mEq tablet,extended release(part/cryst) See Rx Instructions .Route .COMPLEX #30 tabs 01/17/22 [Rx Confirmed 07/11/22] aspirin 81 mg PO BEDTIME 07/11/22 [History Confirmed 07/11/22] dapagliflozin 10 mg tablet (Farxiga) 10 mg PO DAILY 07/11/22 [History Confirmed 07/11/22] doxycycline hyclate 100 mg tablet 100 mg PO BID PRN tick fever 07/11/22 [History Confirmed 07/11/22] exenatide microspheres 2 mg/0.85 mL subcutaneous auto-injector (ByspencerAdmatic) 2 mg SUBCUT Q7D 07/11/22 [History Confirmed 07/11/22] lisinopril 20 mg tablet 10 mg PO DAILY 07/11/22 [History Confirmed 07/11/22] spironolactone 25 mg-hydrochlorothiazide 25 mg tablet 25 tab PO DAILY 07/11/22 [History Confirmed 07/12/22] tadalafil 20 mg tablet 20 mg PO .COMPLEX 07/11/22 [History Confirmed 07/11/22] Discharge Plan Discharge Patient Disposition: Home Condition: Stable Prescriptions: No Action nitroglycerin [Nitrostat] 0.4 mg tablet, sublingual 0.4 mg SUBLINGUAL Q5M PRN (Reason: Chest Pain) omega-3 fatty acids [Fish Oil Concentrate] 1,000 mg capsule 1,000 mg PO DAILY doxycycline hyclate 100 mg tablet 100 mg PO BID PRN (Reason: tick fever) lisinopril 20 mg tablet 10 mg PO DAILY tadalafil 20 mg tablet 20 mg PO .COMPLEX Rx Instructions: 20 mg orally ; prn spironolacton-hydrochlorothiaz 25-25 mg tablet 25 tab PO DAILY Bydureon BCise 2 mg/0.85 mL auto-injector 2 mg SUBCUT Q7D Farxiga 10 mg tablet 10 mg PO DAILY (DME) One touch ultra blue test strips See Rx Instructions .Route .MEDSUPPLY Qty: 1 3RF Rx Instructions: one strip to test blood sugar two times daily ; hydrocodone-acetaminophen 10-325 mg tablet 1 tab PO BID PRN (Reason: pain) 60 Days Qty: 60 0RF Januvia 100 mg tablet 100 mg PO DAILY Qty: 30 3RF glimepiride 4 mg tablet 4 mg PO BID Qty: 180 3RF tamsulosin [Flomax] 0.4 mg capsule 0.4 mg PO DAILY Qty: 30 3RF furosemide 20 mg tablet 20 mg PO DAILY Qty: 90 3RF omeprazole 20 mg capsule,delayed release(DR/EC) 20 mg PO DAILY Qty: 90 1RF potassium chloride 10 mEq tablet,ER particles/crystals See Rx Instructions .ROUTE .COMPLEX Qty: 30 3RF Dose Instruction: TAKE 1 TABLET BY MOUTH DAILY Rx Instructions: TAKE 1 TABLET BY MOUTH DAILY aspirin 81 mg 81 mg PO BEDTIME Discharge Diet: Diabetic Transfer Attestations Time Spent in Transfer Care: less than 30 min Quality Metrics Clinical Quality Measures [ No reported AMI, CVA or VTE this stay] Coding Level of Care Code Acute Code for [facility] Fwd Diagnoses Unstable angina I20.0 Coronary artery disease I25.10 Type 2 diabetes mellitus with diabetic polyneuropathy E11.42 Essential (primary) hypertension I10
[2022-07-12] MEDS: enoxaparin 120 mg/0.8 mL Syringe 110 MG SUBCUT (18:33)
[2022-07-12 18:40] LABS: Glucose Point of Care 153 mg/dL (70-110)
--- NOTE | 2022-07-12 20:09 | PC.NURSE ---
report called to Jessica Akhtar RN [place] [address].
[2022-07-12 20:28] LABS: Glucose Point of Care 167 mg/dL (70-110)
== END 2022-07-12 21:35 | disposition other institution (70) ==
PROVIDERS: Admitting Provider Internal Medicine; PCP Family Medicine; Visit Provider Internal Medicine
DX: I25.110 Atherosclerotic heart disease of native coronary artery with unstable angina pectoris (principal); E11.42 Type 2 diabetes mellitus with diabetic polyneuropathy; I10 Essential (primary) hypertension; Z79.82 Long term (current) use of aspirin; E66.9 Obesity, unspecified; Z68.32 Body mass index [BMI] 32.0-32.9, adult; Z87.891 Personal history of nicotine dependence
CPT/HCPCS: 36415; 36416; 80048; 80053; 82962; 83735; 84100; 84484; 85025; 93005; 93306; 93454; 96372; 99152; 99153; C1769; C1887; C1894; G0378; G0379; J1644; J1650; J2250; J3010; J3490; J7030; Q0163; Q9967

== ENCOUNTER 2022-08-25 11:07 | Outpatient (RCR) | payer OTHER, SELFPAY | END 2022-09-14 23:59 | disposition home or self-care (01) | LOC: CR 11:07 | PROVIDERS: PCP Family Medicine; Referring Provider Internal Medicine Interventional Cardiology; Visit Provider Internal Medicine Interventional Cardiology | DX: Z95.1 Presence of aortocoronary bypass graft (principal) | CPT/HCPCS: 93798 ==

== ENCOUNTER 2022-09-16 10:18 | Outpatient (RCR) | payer OTHER, SELFPAY | END 2022-10-14 23:59 | disposition home or self-care (01) | LOC: CR 10:18 | PROVIDERS: PCP Family Medicine; Referring Provider Internal Medicine Interventional Cardiology; Visit Provider Internal Medicine Interventional Cardiology | DX: Z95.1 Presence of aortocoronary bypass graft (principal) | CPT/HCPCS: 93798 ==

== ENCOUNTER 2022-10-19 14:09 | Outpatient (RCR) | payer OTHER, SELFPAY | END 2022-11-14 23:59 | disposition home or self-care (01) | LOC: CR 14:09 | PROVIDERS: PCP Family Medicine; Referring Provider Internal Medicine Interventional Cardiology; Visit Provider Internal Medicine Interventional Cardiology | DX: Z95.1 Presence of aortocoronary bypass graft (principal) | CPT/HCPCS: 93798 ==

== ENCOUNTER 2023-06-22 13:53 | Outpatient (CLI) | payer OTHER, SELFPAY ==
--- NOTE | 2023-06-22 14:04 | CT_ITS ---
WS: [id number] CT NECK WITH CONTRAST HISTORY: NECK PAIN TECHNIQUE: Contiguous 2 mm axial images are performed through the neck with intravenous contrast. Sag ittal and coronal reformats are also submitted. All CT scans at [facility] use at least one o f these dose optimization techniques: automated exposure control; mA and/or kV adjustment per patient size (includes targeted exams where dose is matched to clinical indication); or iterative reconstruc tion. CONTRAST: CONTRAST: Omnipaque 350; 100 mL IV. DLP: 203.95 mGy.cm COMPARISON: Prior CT 06/07/2015, soft tissue ultrasound 05/02/2023 Palpable mass along the inferior RIGHT neck corresponds to a low-attenuation mass with mildly enhanci ng wall. This is a walled off mass extending over a length of 5.2 cm, transverse 5.1 cm, AP 4.2 cm. M ass appears to be embedded in the distal sternocleidomastoid muscle but extends inferiorly to encase the head of the RIGHT clavicle. The mass encases the head of the RIGHT clavicle extending both anteri or and posterior. There is displacement and slight mass effect upon the adjacent thyroid and soft tis sues. There is mild enhancement. This is not a simple cystic mass. No erosions are identified or osseous destruction involving the RIGHT clavicle. There is no adjacent adenopathy. Oropharynx and nasopharynx are negative. No laryngeal mass. Mild atherosclerotic plaque in the carotid arteries. Visualized paranasal sinuses and mastoid air cells are normal. Benign granuloma RIGHT upper lobe. Prior CABG. IMPRESSION: 1. Solid mass with mild enhancement centered around the RIGHT clavicular head with extension superio rly into the sternocleidomastoid muscle. Mass measures 5.2 x 5.1 x 4.2 cm. No erosions of the clavicu lar head to suggest rheumatoid nodule. Differential includes synovial cyst or ganglion. Due to the in volvement into the sternocleidomastoid muscle and the extent of this mass neoplasm such as sarcoma sh ould be excluded. Recommend surgical excision due to its large size. This may be related to arthropat hy associated with the SC joint although there is not a lot of degenerative change at the SC joint. 2. No adenopathy.
[2023-06-22 14:30] LABS: Blood Urea Nitrogen 23 mg/dL (8-23)
[2023-06-22] MEDS: iohexol 350 mg/mL 500 mL Btl (per mL) IV (14:34)
== END 2023-06-22 13:54 | disposition home or self-care (01) ==
LOC: RAD 13:54
PROVIDERS: Radiology Diagnostic Radiology; PCP Family Medicine; Visit Provider Family Medicine
DX: M54.2 Cervicalgia (principal); R22.1 Localized swelling, mass and lump, neck; M62.89 Other specified disorders of muscle
CPT/HCPCS: 70491; 82565; 84520; Q9967

== ENCOUNTER 2023-10-24 09:41 | Outpatient (CLI) | payer OTHER, SELFPAY ==
[2023-10-24 09:56] VITALS: PULSE 81; RESP 18; O2SAT 97
[2023-10-24] MEDS: albuterol 2.5 mg/3 mL Neb INHALATION (09:56)
[2023-10-24 10:00] VITALS: PULSE 84
== END 2023-10-24 09:42 | disposition home or self-care (01) ==
LOC: RT 09:42
PROVIDERS: PCP Family Medicine; Visit Provider Family Medicine
DX: R06.02 Shortness of breath (principal)
CPT/HCPCS: 94060; 94729; J7613

== ENCOUNTER 2024-05-27 09:28 | Outpatient (CLI) | payer MEDICARE, SELFPAY | END 2024-05-27 09:29 | disposition home or self-care (01) | LOC: SLEEP 09:36 | PROVIDERS: PCP Family Medicine; Visit Provider Family Medicine | DX: G47.33 Obstructive sleep apnea (adult) (pediatric) (principal) | CPT/HCPCS: G0399 ==

== ENCOUNTER 2024-07-10 21:53 | Emergency (ER) | payer MEDICARE, OTHER, SELFPAY ==
--- NOTE | 2024-07-10 22:09 | PC.NURSE ---
Pts family arrived to the room at 2209.
--- NOTE | 2024-07-10 22:17 | PC.NURSE ---
[facility] [facility] and gives authorization to release body.
--- NOTE | 2024-07-10 22:23 | PC.NURSE ---
2223 [facility] has been notified, patient is a candidate for donation, [facility] will attempt to reach out to family.
--- NOTE | 2024-07-10 22:39 | W.ED.CPR ---
HPI - CPR General: Chief Complaint: Cardiac Arrest/CPR Stated Complaint: CPR Time Seen by Provider: 07/10/24 22:24 Source: EMS Mode of arrival: EMS Limitations: altered mental status (Asystolic with i-gel in place) History of Present Illness: EMS brings in the patient in cardiac arrest. Per EMS he told he was having chest pain went to go take a nitro and then when she returned to the room he was found down on the floor unresponsive. No CPR was started until police arrived there approximately 15 minutes later. When ambulance arrived there they started ACLS protocol patient did have 1 round of V-fib which he received 3 shocks for and then 1 other round of PEA. Patient received multiple rounds of medication by EMS approximately 8 rounds of epi, 1 amp of bicarb, 300 mg of amiodarone, CPR was in progress and I gel was in place when a arrived at the ER. Patient was still asystolic with no ocular pupillary reflex. Related Data Home Medications ?Medication ?Instructions ?Recorded ?Confirmed nitroglycerin 0.4 mg sublingual 0.4 mg sublingual Q5M PRN Chest 05/23/19 07/11/22 tablet (Nitrostat) Pain omega-3 fatty acids 1,000 mg 1,000 mg PO DAILY 05/23/19 07/11/22 capsule (Fish Oil Concentrate) aspirin 81 mg PO BEDTIME 07/11/22 07/11/22 dapagliflozin propanediol 10 mg 10 mg PO DAILY 07/11/22 07/11/22 tablet (Farxiga) doxycycline hyclate 100 mg tablet 100 mg PO BID PRN tick fever 07/11/22 07/11/22 exenatide microspheres 2 mg/0.85 2 mg SUBCUT Q7D 07/11/22 07/11/22 mL subcutaneous auto-injector (ByFileblaze) lisinopril 20 mg tablet 10 mg PO DAILY 07/11/22 07/11/22 spironolactone 25 25 tab PO DAILY 07/11/22 07/12/22 mg-hydrochlorothiazide 25 mg tablet tadalafil 20 mg tablet 20 mg PO .COMPLEX 07/11/22 07/11/22 Previous Rx's ?Medication ?Instructions ?Recorded One touch ultra blue test strips #1 ea 01/15/20 hydrocodone 10 mg-acetaminophen 1 tab PO BID PRN pain 2 months #60 12/02/20 325 mg tablet tabs sitagliptin phosphate 100 mg tablet 100 mg PO DAILY #30 tabs 01/25/21 glimepiride 4 mg tablet 4 mg PO BID #180 tabs 03/04/21 tamsulosin 0.4 mg capsule (Flomax) 0.4 mg PO DAILY #30 caps 07/20/21 furosemide 20 mg tablet 20 mg PO DAILY #90 tabs 08/30/21 omeprazole 20 mg capsule,delayed 20 mg PO DAILY #90 caps 09/30/21 release potassium chloride 10 mEq See Rx Instructions .Route 01/17/22 tablet,extended release(part/cryst) .COMPLEX #30 tabs Allergies Allergy/AdvReac Type Severity Reaction Status Date / Time No Known Allergies Allergy Verified 07/11/22 08:21 Review of Systems General: Reports: ROS unobtainable due to endotracheal tube and ROS unobtainable due to medical condition PFSH ED PFSH: Medical History Erectile dysfunction Essential (primary) hypertension Type 2 diabetes mellitus with diabetic polyneuropathy Surgical History History of colonoscopy History of carpal tunnel surgery History of cardiac catheterization Family History Other CAD (coronary artery disease) Social History Smoking and tobacco/nicotine status: former use of tobacco/nicotine (15 years ) Alcohol intake: former Physical Exam Const: OTHER: Unresponsive to painful stimuli, asystolic with CPR in progress, Igel in place, no ocular pupillary reflex HENMT: COMMON NORMALS: normocephalic and atraumatic HEAD & SCALP: normocephalic and atraumatic OTHER: I gel in place Eye: OTHER: No pupillary response ocular reflex Chest: COMMONS NORMALS: normal inspection of the chest Resp: OTHER: Igel in place, patient breathing with RT using Ambu bag without difficulty breath sounds equal and both lungs. Cardio: OTHER: Asystolic MDM - Cardiac Arrest/CPR Medical Decision Making Patient was given approximately 6 more rounds of epi, 1 amp of bicarb, family arrived at the ER and were instructed of everything that has been done with no change in patient's status. At approximately 60+ minutes of total work time family was brought back to patient at bedside with CPR in progress. Code was called at 2211. Medical Records I reviewed the patient's medical records. Lab Data I reviewed the patient's lab results. No radiology studies performed this visit Critical Care Time Critical Care Time: Critical Care Time: Yes Total Critical Care Time: 30 Attestation: The patient was emergently evaluated this patient's presentation and case had a high probability of a clinically significant, sudden, or life-threatening deterioration of the patient's initial critical presentation or condition which required my full and direct attention, intervention and personal management. Discharge Plan Discharge Patient Disposition: Clinical Impression: Cardiac arrest Condition: Stable Prescriptions: No Action nitroglycerin [Nitrostat] 0.4 mg tablet, sublingual 0.4 mg SUBLINGUAL Q5M PRN (Reason: Chest Pain) omega-3 fatty acids [Fish Oil Concentrate] 1,000 mg capsule 1,000 mg PO DAILY doxycycline hyclate 100 mg tablet 100 mg PO BID PRN (Reason: tick fever) lisinopril 20 mg tablet 10 mg PO DAILY tadalafil 20 mg tablet 20 mg PO .COMPLEX Rx Instructions: 20 mg orally ; prn spironolacton-hydrochlorothiaz 25-25 mg tablet 25 tab PO DAILY Bydureon BCise 2 mg/0.85 mL auto-injector 2 mg SUBCUT Q7D Farxiga 10 mg tablet 10 mg PO DAILY (DME) One touch ultra blue test strips See Rx Instructions .Route .MEDSUPPLY Qty: 1 3RF Rx Instructions: one strip to test blood sugar two times daily ; hydrocodone-acetaminophen 10-325 mg tablet 1 tab PO BID PRN (Reason: pain) 60 Days Qty: 60 0RF Januvia 100 mg tablet 100 mg PO DAILY Qty: 30 3RF glimepiride 4 mg tablet 4 mg PO BID Qty: 180 3RF tamsulosin [Flomax] 0.4 mg capsule 0.4 mg PO DAILY Qty: 30 3RF furosemide 20 mg tablet 20 mg PO DAILY Qty: 90 3RF omeprazole 20 mg capsule,delayed release(DR/EC) 20 mg PO DAILY Qty: 90 1RF potassium chloride 10 mEq tablet,ER particles/crystals See Rx Instructions .ROUTE .COMPLEX Qty: 30 3RF Dose Instruction: TAKE 1 TABLET BY MOUTH DAILY Rx Instructions: TAKE 1 TABLET BY MOUTH DAILY aspirin 81 mg 81 mg PO BEDTIME Referrals: Arthur Jacob MD [Primary Care Provider] - Print Language: Yoruba Coding Level of Care Code ED [employer] for Kristin Berry
--- NOTE | 2024-07-10 22:39 | PC.NURSE ---
PT ARRIVED VIA EMS AT 2153, CPR WAS INITIATED AND IN PROGRESS. CPR WAS CONTINUED THROUGH OUT CODE. PT WAS PUT ONTO OUR STRETCHER AND HOOKED UP TO [facility] MACHINE AND MONITORING STARTED. A PULSE CHECK AND EPI WAS GIVEN AT 2154. CPR WAS THEN CONTINUED AND AT 2157 ANOTHER EPI AND PULSE CHECK TOOK PLACE. AT 2158, A BICARB 50 MIGUEL AMP WAS GIVEN. 2199, ANOTHER PULSE CHECK PERFORMED, STILL NO PULSE WAS NOTED BY NURSE OR PROVIDER. AT 2200 ANOTHER ROUND OF EPI ADMINISTERED. 2, NO PULSE. 2203, NO PULSE AND ADMINISTERED EPI AGAIN. 6, PULSE CHECK, NO PULSE. 2206, EPI ADMINISTERED. 2207 PULSE CHECK, NO PULSE. 221, PULSE CHECK PERFORMED, NO PULSE. 221, NO PULSE, IN THE ROOM, TOD 2211.
--- NOTE | 2024-07-11 00:15 | PC.NURSE ---
Morgue time is 0015.
[2024-07-11 00:53] VITALS: BP 0/0; PULSE 0; RESP 0; O2SAT 0
--- NOTE | 2024-07-11 01:14 | PC.NURSE ---
0114 - [facility] called to report that family has agreed to donation. [facility] telephone service representative on their way to warehouse order picker body.
--- NOTE | 2024-07-11 04:20 | PC.NURSE ---
0420 - [facility] has arrived to transport body.
== END 2024-07-11 00:57 | disposition expired ==
PROVIDERS: Emergency Provider Emergency Medicine; PCP Family Medicine
DX: I46.9 Cardiac arrest, cause unspecified (principal); Z79.82 Long term (current) use of aspirin; Z87.891 Personal history of nicotine dependence; I10 Essential (primary) hypertension; E11.42 Type 2 diabetes mellitus with diabetic polyneuropathy
CPT/HCPCS: 99285